=== PATIENT | male | born 1990 | race Hispanic/Latino ===

== ENCOUNTER 2021-05-04 09:07 | Emergency (ER) | payer OTHER, SELFPAY ==
[~2021-05-04] VITALS: Ht 177.8 cm; Wt 63.5 kg
[2021-05-04] MEDS ORDERED: NAPR-1180 PO (11:39)
[2021-05-04 12:01] VITALS: BP 126/74
== END 2021-05-04 12:03 | disposition home or self-care (01) ==
LOC: EDH 09:07
DX: S62.326A Displaced fracture of shaft of fifth metacarpal bone, right hand, initial encounter for closed fracture (principal); Z86.16 Personal history of COVID-19; Z91.010 Allergy to peanuts; W18.2XXA Fall in (into) shower or empty bathtub, initial encounter; Y93.89 Activity, other specified; Y92.89 Other specified places as the place of occurrence of the external cause; Y99.8 Other external cause status
CPT/HCPCS: 29125; 73110; 73130

== ENCOUNTER 2024-12-22 09:51 | Emergency (ER) | payer SELFPAY ==
[~2024-12-22] VITALS: Ht 177.8 cm; Wt 59.0 kg
[~2024-12-22 09:51] MED LIST: NAPR-1180 PO
--- NOTE | 2024-12-22 09:59 | ERN ---
General Chief Complaint: Nausea,Vomiting,Diarrhea Stated Complaint: NAUSEA VOMITING ONSET THIS MORNING Time Seen by MD: 09:52 Source: patient History of Present Illness Initial Comments Patient in his is a 34-year-old male coming in to be evaluated for nauseousness and vomiting. Patient does state that he recently started smoking cannabis again. He states that he had a similar episode in the past when he smokes cannabis as well. Allergies: Coded Allergies: peanut (Unverified Allergy, Unknown, 12/30/16) Home Meds Active Scripts Naproxen (Naprosyn) 500 Mg Tablet, 500 MG PO BIDPC PRN for pain for 10 Days, #20 TAB 0 Refills Prov:EDI JOSE MD 05/04/21 Past Medical History Past Medical History: Other Medical History Other: COVID 02/16 Past Surgical History: None Social History Social History: Other ROS Dictation CONSTITUTIONAL: No chills, no fever, no weakness, no diaphoresis, no malaise. HEAD/FACE: No signs of trauma. EENT: No eye pain, no blurred vision, no tearing, no double vision, no ear pain, no ear discharge, no nose pain, no nasal congestion, no throat pain, no throat swelling, no mouth pain. RESPIRATORY: No cough, no orthopnea, no SOB, no stridor, no wheezing. CARDIOVASCULAR: No chest pain, no edema, no palpitations, no syncope. GASTROINTESTINAL/ABDOMINAL: No abdominal pain, no constipation, no diarrhea, nausea, vomiting. GENITOURINARY: No abnormal discharge, no dysuria, no frequent urination, no hematuria. No complaints of pain in the genitals. MUSCULOSKELETAL: No back pain, no gout, no joint pain, no joint swelling, no muscle pain, no muscle stiffness, no neck pain. INTEGUMENTARY: No change in color, no change in hair/nails, no dryness, no lesion, no lumps, no rash. NEUROLOGICAL/PSYCH: No anxiety, not depressed, no emotional problem, no headache, no numbness, no pre-existing deficit, no history of seizures, no tremors, no weakness. HEMATOLOGIC/LYMPHATIC: Not anemic, no history of blood clots, no apparent bleeding, no bruising, glands not swollen. All Systems Negative, Except as Noted. Physical Exam Physical Exam Dictation VITAL SIGNS: Reviewed. GENERAL APPEARANCE: Alert, oriented x3, no acute distress, obese. HEAD AND FACE: Non-traumatic. EYES: PERRL, pink conjunctivas, eyelid no trauma, anterior chamber clear. EARS: Pinnas intact and no signs of trauma or erythema. Ear canals clear and no discharge. TMs no erythema. NOSE: No discharge, no bleeding. OROPHARYNX: Mouth normal, teeth no caries, tongue pink. Pharynx clear, no erythema. Tonsils no exudates, no abscesses noted. Mucous membrane moist. NECK: Supple, non-tender, no thyromegaly, no masses, no JVD, no bruits. BREAST: Deferred. CHEST: No tenderness, no crepitus, no paradoxical movement, no retractions. LUNGS: Clear, well-ventilated, symmetric, no rales, no wheezing, no rhonchi, no stridor, good breath sounds bilaterally. HEART: Regular rate, regular rhythm, no murmur, no gallops. VASCULAR: No peripheral edema. ABDOMEN: Soft, positive bowel sounds, nondistended, no guarding, nontender, no rebound, no masses no hepatomegaly, no splenomegaly, no Carr's sign, no hernias. RECTAL: Deferred. GENITAL: Deferred. NEUROLOGICAL: Normal speech, gross motor function intact, gross sensory function intact. MUSCULOSKELETAL: Neck nontender, full range of motion, back nontender, full range of motion. EXTREMITIES: Nontender, full range of motion. SKIN: Color pink, dry, no turgor, no rash, no lacerations, no abrasions, no c ontusions. LYMPHATICS: Deferred. Results Laboratory and Microbiology Lab and Micro Result Laboratory Tests Test 12/22/24 10:03 12/22/24 11:25 White Blood Count 9.8 K/uL (4.8-10.8) Red Blood Count 5.08 MIL/uL (4.50-6.20) Hemoglobin 15.3 g/dL (14.0-18.0) Hematocrit 45.1 % (42-54) Mean Corpuscular Volume 88.8 fL (79-99) Mean Corpuscular Hemoglobin 30.1 pg (27.0-33.0) Mean Corpuscular Hemoglobin Concent 33.9 g/dL (32.0-36.0) Red Cell Distribution Width 12.6 % (11.0-15.5) Platelet Count 275 K/uL (130-400) Mean Platelet Volume 10.8 fL (7.5-10.5) H Immature Granulocyte % (Auto) 0.5 % (0-1) Neutrophils (%) (Auto) 73.2 % (40.0-77.0) Lymphocytes (%) (Auto) 17.9 % (21.0-51.0) L Monocytes (%) (Auto) 6.8 % (3.0-13.0) Eosinophils (%) (Auto) 1.2 % (0.0-8.0) Basophils (%) (Auto) 0.4 % (0.0-5.0) Neutrophils # (Auto) 7.2 K/uL (1.8-7.7) Lymphocytes # (Auto) 1.8 K/uL (1.0-4.8) Monocytes # (Auto) 0.7 K/uL (0.1-1.0) Eosinophils # (Auto) 0.12 K/uL (0.00-0.70) Basophils # (Auto) 0.04 K/uL (0.00-0.20) Absolute Immature Granulocyte (auto 0.05 K/uL (0-1) Nucleated Red Blood Cells 0.0 % (0.0-0.19) Sodium Level 139 mmol/L (136-145) Potassium Level 4.0 mmol/L (3.5-5.1) Chloride Level 102 mmol/L (101-111) Carbon Dioxide Level 25 mmol/L (21-32) Blood Urea Nitrogen 13 mg/dL (7-18) Creatinine 0.9 mg/dL (0.5-1.3) Glomerular Filtration Rate Calc 114 mL/min (>90) Random Glucose 129 mg/dL (70-105) H Total Calcium 10.3 mg/dL (8.5-10.1) H Total Bilirubin 0.6 mg/dL (0.2-1.0) Aspartate Amino Transf (AST/SGOT) 18 U/L (10-37) Alanine Aminotransferase (ALT/SGPT) 30 U/L (12-78) Alkaline Phosphatase 73 U/L (50-136) Total Creatine Kinase 91 U/L (21-232) # Total Protein 8.9 g/dL (6.0-8.3) H Albumin 4.9 g/dL (3.5-5.0) Lipase 24 U/L (16-77) Urine Color LIGHT-YELLOW (YELLOW) Urine Appearance CLEAR (CLEAR) Urine pH 8.0 (5.0-8.0) Urine Specific [place] 1.019 (1.001-1.031) Urine Protein NEGATIVE mg/dL (NEGATIVE) Urine Glucose (UA) NEGATIVE mg/dL (NEGATIVE) Urine Ketones 10 mg/dL (NEGATIVE) H Urine Occult Blood NEGATIVE (NEGATIVE) Urine Nitrate NEGATIVE (NEGATIVE) Urine Bilirubin NEGATIVE mg/dL (NEGATIVE) Urine Urobilinogen 0.2 mg/dL (0.2-1.0) Urine Leukocyte Esterase NEGATIVE [place]/uL Urine RBC 0-1 /HPF (0-1) Urine WBC 2-5 /HPF (0-1) H Urine Squamous Epithelial Cells Rare /HPF (0-2) Urine Bacteria None Seen /HPF (None Seen) Urine Opiates Screen NEGATIVE (NEGATIVE) Urine Barbiturates Screen NEGATIVE (NEGATIVE) Urine Phencyclidine Screen NEGATIVE (NEGATIVE) Urine Amphetamines Screen NEGATIVE (NEGATIVE) Urine Benzodiazepines Screen NEGATIVE (NEGATIVE) Urine Cocaine Screen NEGATIVE (NEGATIVE) Urine Marijuana (THC) Screen POSITIVE (NEGATIVE) H Labs Reviewed?: Yes EKG/XRAY/US/CT/MRI EKG Comment 12/22/2024 time 10:04 a.m. Ventricular rate 64 Sinus rhythm [place] [address] wave elevation or depression MDM MDM: Differential diagnosis: Gastroenteritis, cannabis abuse, Rationale: Tests considered and ordered secondary to shared decision making include: Previous outside records reviewed: Old ER visits. Risk of complication and/or morbidity or mortality of patient management: None Medications-Per medication reconciliation Need for hospitalization: Patient does not meet criteria for hospitalization. Need for emergency major/minor surgery: No ED Course Orders Procedure Category Date Status Time Cbc With Differential LAB 12/22/24 Complete 09:55 Comprehensive LAB 12/22/24 Complete Metabolic Panel 09:55 Urinalysis Profile LAB 12/22/24 Complete 09:55 12 Lead Ekg Tracing- EKG 12/22/24 Complete Technical 09:55 Lactated Ringers PHA 12/22/24 Complete 1000ml (Lactated 10:00 Ondansetron 4mg Inj PHA 12/22/24 Complete (Zofran 4mg Inj) 10:00 Pantoprazole 40mg Inj PHA 12/22/24 Complete (Protonix 40mg Inj 10:00 Creatine Kinase, Total LAB 12/22/24 Complete 09:55 Lipase LAB 12/22/24 Complete 09:55 Drug Screen Urine LAB 12/22/24 Complete 09:55 Current Medications Medications (Trade) Dose Ordered Sig/Chacho Route PRN Reason Start Time Stop Time Status Last Admin Dose Admin Lactated Ringer's 1,000 ml @ 0 mls/hr ONCE ONCE IV 12/22/24 10:00 12/22/24 10:01 DC 12/22/24 10:33 Ondansetron HCl (zoFRAN 4MG INJ) 4 mg ONCE ONCE IVP 12/22/24 10:00 12/22/24 10:01 DC 12/22/24 10:30 Pantoprazole Sodium (PROTonix 40MG INJ) 40 mg ONCE ONCE IVP 12/22/24 10:00 12/22/24 10:01 DC 12/22/24 10:30 Vital Signs Date Time Temp Pulse Resp B/P (MAP) Pulse Ox O2 Delivery O2 Flow Rate FiO2 12/22/24 11:55 97.5 54 11 105/51 100 Room Air* 0 21 12/22/24 10:17 97.2 65 18 131/71 100 Room Air* 0 21 12/22/24 09:52 97.9 64 22 131/77 100 Room Air 0 DX & DISP Disposition: Discharge Departure Impression: Primary Impression: Cannabis abuse Additional Impression: Gastroenteritis Condition: Stable Additional Instructions: FOLLOW-UP WITH PRIMARY CARE PROVIDER IN 1 TO 2 DAYS. TAKE MEDICATIONS DIRECTED HERE IN THE EMERGENCY ROOM. OKAY TO CONTINUE HOME MEDICATIONS UNLESS OTHERWISE DISCUSSED DURING YOUR VISIT IN THE EMERGENCY ROOM TODAY. RETURN TO YOUR NEAREST EMERGENCY ROOM IF SYMPTOMS WORSEN OR IF THERE IS NO IMPROVEMENT. CALL 911 IF YOU NEED IMMEDIATE ASSISTANCE. TAKE TYLENOL LLUU-MEN-LLNLLUM NEEDED AND IF NO CONTRAINDICATIONS ARE PRESENT. INCREASE ORAL HYDRATION. A WOUND CULTURE OR URINE CULTURE WAS ORDERED HERE IN THE EMERGENCY ROOM DEPARTMENT PLEASE FOLLOW-UP WITH PRIMARY CARE PROVIDER AND ADVISE THEM TO GET REPORTS FROM OUR FACILITY. IF YOU HAD ANY EMMANUELLE WRAP/SPLINTS THAT WERE APPLIED HERE, PLEASE DO NOT REMOVE THEM UNTIL YOU SEE YOUR PRIMARY CARE OR SPECIALTY. Referrals: Referrals: SELF,REFERRAL (PCP) SAHARA CHEN MD Time of Disposition: 12:12 ADOLPH GREWAL MD Dec 22, 2024 09:59
[2024-12-22 10:13] LABS: BASOPHILS # (AUTO) 0.04 K/uL (0.00-0.20); BASOPHILS % (AUTO) 0.4 % (0.0-5.0); EOSINOPHILS # (AUTO) 0.12 K/uL (0.00-0.70); EOSINOPHILS % (AUTO) 1.2 % (0.0-8.0); HEMATOCRIT 45.1 % (42-54); IMMATURE GRANULOCYTE ABSOLUTE 0.05 K/uL (0-1); LYMPHOCYTES # (AUTO) 1.8 K/uL (1.0-4.8); LYMPHOCYTES % (AUTO) 17.9 % (21.0-51.0); MEAN CORPUSCULAR HEMOGLOBIN 30.1 pg (27.0-33.0); MEAN CORPUSCULAR HGB CONC 33.9 g/dL (32.0-36.0); MEAN CORPUSCULAR VOLUME 88.8 fL (79-99); MONOCYTES # (AUTO) 0.7 K/uL (0.1-1.0); MONOCYTES % (AUTO) 6.8 % (3.0-13.0); NEUTROPHILS # (AUTO) 7.2 K/uL (1.8-7.7); NEUTROPHILS % (AUTO) 73.2 % (40.0-77.0); PLATELET COUNT (AUTO) 275 K/uL (130-400); RED BLOOD CELL COUNT(AUTO) 5.08 MIL/uL (4.50-6.20); RED CELL DISTRIBUTION WIDTH 12.6 % (11.0-15.5); WHITE BLOOD COUNT (AUTO) 9.8 K/uL (4.8-10.8)
--- NOTE | 2024-12-22 10:15 | EKG ---
[facility] Test Date: 2024-12-22 Test Time: 10:04:43 Pat Name: CLAUDIA FRIEDMAN Department: ED Room: Gender: M Lingo Cleaner: [id number] : [id number] Requested By: ADOLPH GREWAL Order Number: [id number] Reading MD: Conrado Hall Measurements Intervals [place] Rate: 64 P: 66 SD: 132 QRS: 75 QRSD: 86 T: 34 QT: 406 QTc: 418 Interpretive Statements Sinus arrhythmia ST elev, probable normal early repol pattern Compared to ECG 12/29/2016 23:28:51 ST (T wave) deviation now present Sinus rhythm no longer present Atrial abnormality no longer present Right-axis deviation no longer present Electronically Signed On 12-23-2024 15:03:41 CDT by Conrado Hall Please click the below link to view image of tracing.
[2024-12-22 10:26] LABS: ALBUMIN 4.9 g/dL (3.5-5.0); BILIRUBIN,TOTAL 0.6 mg/dL (0.2-1.0); CREATININE 0.9 mg/dL (0.5-1.3); TOTAL PROTEIN, SERUM 8.9 g/dL (6.0-8.3)
[2024-12-22] MEDS: ondanSETRON 4MG INJ IVP ONE ×2 (10:30→12:48)
[2024-12-22] MEDS: PANTOPrazole 40 MG/VIAL IVP ONE (10:30)
[2024-12-22] MEDS: LACTATED RINGERS 1000ML 1,000 ML IV ONE (10:33)
--- NOTE | 2024-12-22 10:44 | NUR ---
PATIENT DOES NOT TAKE ANY HOME MEDS
[2024-12-22 11:46] LABS: APPEARANCE,URINE CLEAR (CLEAR); BILIRUBIN,URINE NEGATIVE (NEGATIVE); COLOR,URINE LIGHT-YELLOW (YELLOW); GLUCOSE, URINE (UA) NEGATIVE (NEGATIVE); KETONES,URINE 10 mg/dL (NEGATIVE); LEUKOCYTE ESTERASE ,URINE NEGATIVE Leu/uL (NEGATIVE); NITRATE,URINE NEGATIVE (NEGATIVE); OCCULT BLOOD,URINE NEGATIVE (NEGATIVE); PROTEIN,URINE NEGATIVE (NEGATIVE); UROBILINOGEN,URINE 0.2 mg/dL (0.2-1.0)
[2024-12-22 11:49] LABS: AMPHET/METH SCREEN,URINE NEGATIVE (NEGATIVE); BARBITURATE SCREEN, URINE NEGATIVE (NEGATIVE); BENZODIAZEPINES SCREEN,URINE NEGATIVE (NEGATIVE); CANNABINOID SCREEN,URINE POSITIVE (NEGATIVE); COCAINE SCREEN,URINE NEGATIVE (NEGATIVE); OPIATE SCREEN,URINE NEGATIVE (NEGATIVE); PHENCYCLIDINE SCREEN,URINE NEGATIVE (NEGATIVE)
[2024-12-22 11:53] LABS: ADD UA MICROSCOPIC YES
[2024-12-22 11:54] LABS: BACTERIA,URINE None Seen /HPF (None Seen); MUCUS,URINE Rare LPF (None Seen); RBC,URINE 0-1 /HPF (0-1); SQUAMOUS EPITHELIAL CELL,UR Rare /HPF (0-2)
[2024-12-22 13:56] VITALS: BP 116/83; PULSE 65; RESP 14; TEMP 98.5; O2SAT 100
--- NOTE | 2024-12-22 14:01 | NUR ---
DC PATIENT WAS DC'D BY DR GREWAL, I DC'D PATIENTS IV WITH CATH STILL INTACT AND APPLIED 2X2 GAUZE WITH COBAN, I EXPLAINED TO PATIENT TO FOLLOW UP WITH PCP, PROVIDED INFO BASED ON DIAGNOSIS, I ANSWERED ANY QUESTIONS THE PATIENT HAD WELL PATIENT STILL HAD EMESIS EPISODES AND EXPLAINED TO COME BACK TO ED IF NAUSEA AND VOMITING DOESNT SUBSIDE, PATIENT AMBULATED OUT OF ED ACCOMPANIED BY
== END 2024-12-22 13:54 | disposition home or self-care (01) ==
LOC: EDH 09:51
DX: F12.10 Cannabis abuse, uncomplicated (principal); K52.9 Noninfective gastroenteritis and colitis, unspecified; F17.200 Nicotine dependence, unspecified, uncomplicated; Z86.16 Personal history of COVID-19
CPT/HCPCS: 99284; 96374; 96361; 96375; 82550; 80053; 80305; 83690; 85025; 81001; 36415; 96376; 93005; J7120; J2405 ×2; J2470